=== PATIENT | male | born 1985 | race Caucasian/White ===

== ENCOUNTER 2023-12-01 19:26 | Emergency (ER) | payer MEDICAID, OTHER ==
[~2023-12-01] VITALS: Ht 170.2 cm; Wt 82.7 kg
[2023-12-01 19:27] VITALS: BP 139/92; PULSE 120; RESP 18; O2SAT 99
[2023-12-01] MEDS ORDERED: IBUP-1454 PO (21:12)
[2023-12-01] MEDS ORDERED: ZOFR4T PO (21:12)
== END 2023-12-02 00:39 | disposition home or self-care (01) ==
LOC: ER 19:26
DX: F11.23 Opioid dependence with withdrawal (principal)

== ENCOUNTER 2024-03-09 08:23 | Inpatient (IN) | payer MEDICAID ==
[~2024-03-09] VITALS: Ht 170.2 cm; Wt 82.2 kg
[~2024-03-09 08:23] MED LIST: IBUP-1454 PO; ZOFR4T PO
[2024-03-09 09:24] VITALS: PULSE 55
[2024-03-09] MEDS: PROCHLORPERAZINE EDISYLATE 5 MG/ML 2ML VIAL IV ONE (09:37)
[2024-03-09] MEDS: SODIUM CHLORIDE 0.9% 1,000 ML IVB ONE (09:38)
[2024-03-09] MEDS: LORazepam 2MG/ML-1ML VIAL IV ONE (09:38)
[2024-03-09 10:08] LABS: Basophils # (auto) 0 10 ^3/uL (0-0.2); Eosinophils # (auto) 0 10 ^3/uL (0-0.8); Monocytes # (auto) 0.6 10 ^3/uL (0-1.3)
[2024-03-09 10:10] LABS: Eosinophils % (auto) 0.1 % (0.0-7.0); Hematocrit 50.3 % (41.0-53.0); Hemoglobin 17.1 g/dL (13.5-17.5); Lymphocytes # (auto) 1.2 10 ^3/uL (0.4-5.4); Lymphocytes % (auto) 9.3 % (10.0-50.0); Mean Corpuscular Hemoglobin 27.8 pg (28.0-32.0); Mean Corpuscular Volume 81.8 fL (80.0-100.0); Monocytes % (auto) 4.9 % (0.0-12.0); Neutrophils # (auto) 10.7 10 ^3/uL (1.6-8.6); Neutrophils % (auto) 85.7 % (37.0-80.0); Nucleated Red Blood Cells % 0.3 %; Red Blood Cells 6.15 10^6/uL (4.5-5.90); White Blood Cell 12.5 10^3/uL (4.4-10.8)
[2024-03-09 10:14] LABS: Alanine Aminotransferase 16 U/L (7-40); Albumin 5.7 g/dL (3.2-4.8); Alkaline Phosphatase 62 U/L (46-116); Anion Gap 13 (5-15); Aspartate Aminotransferase 21 U/L (13-40); BUN/Creatinine Ratio 12.6 (10.0-20.0); Blood Urea Nitrogen 13 mg/dL (9-23); Carbon Dioxide 28 mmol/L (20-30); Chloride 97 mmol/L (98-107); Glucose 111 mg/dL (74-106); Potassium 2.7 mmol/L (3.5-5.1); Sodium 138 mmol/L (136-145)
[2024-03-09 10:15] LABS: Bilirubin, Total 0.8 mg/dL (0.2-1.0); Total Protein 9.7 g/dL (5.7-8.2)
[2024-03-09 10:44] LABS: Lipase 69 U/L (12-53)
[2024-03-09 12:00] LABS: Platelet Estimate Adequate
[2024-03-09] MEDS: SODIUM CHLORIDE 0.9% 1,000 ML IV ONE ×2 (12:50→22:01)
[2024-03-09] MEDS: POTASSIUM EFFERVESENT TAB 25 MEQ PO ONE (14:15)
[2024-03-09] MEDS: POTASSIUM CHL 20 Meq TABLET PO ONE (15:39)
[2024-03-09] MEDS ORDERED: NITROGLYCERIN 0.4 MG SL TAB SL PRN (17:15)
[2024-03-09] MEDS: ONDANSETRON HCL 4 MG/2 ML VIAL IV PRN (18:00)
[2024-03-09] MEDS: SODIUM CHLORIDE 0.9% 1,000 ML IV SCH (18:01)
[2024-03-09] MEDS: MORPHINE SULFATE INJ 2 MG/ml SYRG IV PRN (18:18)
[2024-03-09] MEDS ORDERED: metroNIDAZOLE 500MG/100ML 100 ML IV ONE (19:15)
[2024-03-09] MEDS: cefTRIAXone 1GM/50ML D5W 50 ML IV ONE (21:25)
[2024-03-09] MEDS: PANTOPRAZOLE 40 MG/10 ML VIAL INJ IV ONE (21:25)
[2024-03-09] MEDS: KETOROLAC TROMETH 30 MG/ML 1ML VIAL IV ONE (21:26)
[2024-03-09] MEDS: metroNIDAZOLE 500MG/100ML 100 ML IV SCH (22:00)
[2024-03-09 22:09] VITALS: PULSE 67; RESP 16; O2SAT 99
[2024-03-09 22:48] VITALS: PULSE 61; RESP 16
[2024-03-09 23:35] VITALS: BP 119/74; PULSE 47; RESP 17; TEMP 98.2; O2SAT 97
[2024-03-09] MEDS: ACETAMINOPHEN 325 MG TAB PO PRN (23:46)
[2024-03-09] MEDS: KETOROLAC TROMETH 30 MG/ML 1ML VIAL IV PRN (23:47)
[2024-03-10] VITALS (7 sets, daily range): BP systolic 108–122; BP diastolic 70–80; PULSE 45–77; RESP 16–22; TEMP 97.8–98.8; O2SAT 91–100
[2024-03-10] MEDS: metroNIDAZOLE 500 MG TAB PO SCH (05:33)
[2024-03-10 06:49] LABS: Basophils # (auto) 0 10 ^3/uL (0-0.2); Basophils % (auto) 0.3 % (0.0-2.0); Eosinophils # (auto) 0 10 ^3/uL (0-0.8); Hematocrit 40.9 % (41.0-53.0); Hemoglobin 13.6 g/dL (13.5-17.5); Lymphocytes # (auto) 1.5 10 ^3/uL (0.4-5.4); Mean Corpuscular Hemoglobin 27.7 pg (28.0-32.0); Mean Corpuscular Hgb Conc. 33.3 g/dL (32.0-36.0); Mean Corpuscular Volume 83.1 fL (80.0-100.0); Monocytes % (auto) 8.8 % (0.0-12.0); Neutrophils # (auto) 8.8 10 ^3/uL (1.6-8.6); Neutrophils % (auto) 77.9 % (37.0-80.0); Red Blood Cells 4.93 10^6/uL (4.5-5.90); White Blood Cell 11.4 10^3/uL (4.4-10.8)
[2024-03-10 07:05] LABS: Alanine Aminotransferase 10 U/L (7-40); Alkaline Phosphatase 43 U/L (46-116); Anion Gap 7 (5-15); Aspartate Aminotransferase 12 U/L (13-40); BUN/Creatinine Ratio 11.9 (10.0-20.0); Bilirubin, Total 0.7 mg/dL (0.2-1.0); Blood Urea Nitrogen 10 mg/dL (9-23); Carbon Dioxide 25 mmol/L (20-30); Glucose 105 mg/dL (74-106); Lipase 74 U/L (12-53); Potassium 2.9 mmol/L (3.5-5.1); Sodium 140 mmol/L (136-145)
[2024-03-10 07:10] LABS: Chloride 108 mmol/L (98-107)
[2024-03-10] MEDS: ENOXAPARIN SOD 40 MG/0.4 ML SYRINGE SC SCH (09:00)
[2024-03-10] MEDS: PANTOPRAZOLE 40 MG/10 ML VIAL INJ IV SCH (10:21)
[2024-03-10] MEDS: cefTRIAXone 1GM/50ML D5W 50 ML IV SCH (10:22)
[2024-03-10] MEDS: POTASSIUM CHL 20 Meq TABLET PO SCH (10:59)
[2024-03-10 11:13] LABS: Urine Bacteria None Seen /hpf (None Seen)
[2024-03-10 11:34] LABS: Magnesium 1.9 mg/dL (1.6-2.6)
[2024-03-10 11:35] LABS: CRP High Sensitivity 0.1 mg/dL (<1.0)
[2024-03-10 11:48] LABS: Amphetamine Screen, Urine Neg (NEGATIVE); Barbiturate Scree,Urine Neg (NEGATIVE); Benzodiazephine Screen, Urine Neg (NEGATIVE); Cocaine Screen, Urine Neg (NEGATIVE)
[2024-03-10 11:49] LABS: Cannabinoid Screen, Urine Neg (NEGATIVE); Opiate Scree,Urine Neg (NEGATIVE); Phencyclidine Screen, Urine Neg (NEGATIVE)
[2024-03-10 12:01] LABS: Urine Blood Negative /uL (Negative); Urine Clarity Clear (Clear); Urine Color Light-Yellow (Yellow); Urine Protein, UAD Negative (Negative); Urine Urobilinogen Normal (Negative); Urine WBC <1 /hpf (0 - 3)
[2024-03-10 12:35] LABS: Free T3 2.13 pg/mL (2.3-4.2); Free T4 (Free Thyroxine) 0.91 ng/dL (0.89-1.76)
[2024-03-10] MEDS: METOCLOPRAMIDE HCL 5MG/ml INJ 2ml VIAL IV ONE (13:00)
[2024-03-10] MEDS: METOCLOPRAMIDE HCL 5MG/ml INJ 2ml VIAL IV PRN (14:18)
[2024-03-10] MEDS: ACETAMINOPHEN 325 MG TAB PO PRN (15:32)
[2024-03-10] MEDS: POTASSIUM CHLORIDE 40 MEQ, LIDOCAINE 1% (LOCAL ANESTH.) 4 ML in SODIUM CHL 0.9% 250 ML IV ONE (17:57)
[2024-03-10] MEDS: KETOROLAC TROMETH 30 MG/ML 1ML VIAL IV PRN (18:54)
[2024-03-10] MEDS: MELATONIN 5 MG TAB PO SCH (22:35)
[2024-03-11] MEDS: ACETAMINOPHEN 325 MG TAB PO PRN (02:07)
[2024-03-11 05:00] VITALS: BP 116/63; PULSE 54; RESP 18; TEMP 98.1; O2SAT 97
[2024-03-11 06:45] LABS: Basophils # (auto) 0 10 ^3/uL (0-0.2); Basophils % (auto) 0.3 % (0.0-2.0); Eosinophils # (auto) 0 10 ^3/uL (0-0.8); Eosinophils % (auto) 0.3 % (0.0-7.0); Hematocrit 38.4 % (41.0-53.0); Lymphocytes % (auto) 22.2 % (10.0-50.0); Mean Corpuscular Hemoglobin 27.8 pg (28.0-32.0); Mean Corpuscular Hgb Conc. 33.8 g/dL (32.0-36.0); Mean Corpuscular Volume 82.2 fL (80.0-100.0); Monocytes # (auto) 0.8 10 ^3/uL (0-1.3); Monocytes % (auto) 8.8 % (0.0-12.0); Neutrophils % (auto) 68.4 % (37.0-80.0); Nucleated Red Blood Cells % 0.1 %; Red Blood Cells 4.67 10^6/uL (4.5-5.90); Red Cell Distribution Width 13.7 % (11.8-14.3); White Blood Cell 8.8 10^3/uL (4.4-10.8)
[2024-03-11 07:19] LABS: Alanine Aminotransferase 24 U/L (7-40); Albumin 3.8 g/dL (3.2-4.8); Alkaline Phosphatase 38 U/L (46-116); Anion Gap 5 (5-15); Aspartate Aminotransferase 19 U/L (13-40); Bilirubin, Total 0.4 mg/dL (0.2-1.0); Blood Urea Nitrogen 10 mg/dL (9-23); Carbon Dioxide 25 mmol/L (20-30); Chloride 112 mmol/L (98-107); Glucose 117 mg/dL (74-106); Lipase 87 U/L (12-53); Magnesium 1.8 mg/dL (1.6-2.6); Potassium 3.6 mmol/L (3.5-5.1); Sodium 142 mmol/L (136-145); Total Protein 6.4 g/dL (5.7-8.2)
[2024-03-11 08:00] VITALS: PULSE 56
[2024-03-11 09:00] VITALS: BP 120/77; PULSE 54; RESP 19; TEMP 97.8; O2SAT 100
[2024-03-11] MEDS: LACTULOSE 20Gm/30ML SOLN PO ONE (09:01)
[2024-03-11] MEDS: BISACODYL 5 MG EC TAB PO ONE (09:01)
[2024-03-11] MEDS: POTASSIUM EFFERVESENT TAB 25 MEQ PO ONE (09:02)
[2024-03-11] MEDS: METOCLOPRAMIDE HCL 5MG/ml INJ 2ml VIAL IV ONE (09:03)
[2024-03-11] MEDS ORDERED: PANT40TA2 PO (11:02)
[2024-03-11] MEDS ORDERED: LACT10SO3 PO (11:44)
[2024-03-11] MEDS ORDERED: LACTULOSE 20Gm/30ML SOLN PO ONE (11:45)
[2024-03-11 12:31] VITALS: TEMP 36.6
== END 2024-03-11 14:30 | disposition home or self-care (01) | DRG 425 ==
LOC: EDBD 08:23 → ER 08:23 → TELE 17:13 → TELE-WESTW 22:57
PROVIDERS: ADMIT Internal Medicine Pulmonary Disease; ATTEND Internal Medicine Pulmonary Disease
DX: E87.6 Hypokalemia (principal); K56.7 Ileus, unspecified; R65.10 Systemic inflammatory response syndrome (SIRS) of non-infectious origin without acute organ dysfunction; F11.23 Opioid dependence with withdrawal; E83.52 Hypercalcemia; E07.81 Sick-euthyroid syndrome; Z79.899 Other long term (current) drug therapy
CPT/HCPCS: 36415; 70450; 71045; 74176; 80053; 80307; 80320; 81001; 82306; 83605; 83690; 83735; 84132; 84439; 84443; 84481; 84484; 85025; 86141; 87040; 93005; 93306; 93886; 97163; C9113; G0378; J1885; J2001; J2405

== ENCOUNTER 2024-05-09 19:34 | Inpatient (IN) | payer MEDICAID ==
[~2024-05-09] VITALS: Ht 170.2 cm; Wt 81.2 kg
[2024-05-09] MEDS: SODIUM CHLORIDE 0.9% 1,000 ML IV ONE (19:30)
[~2024-05-09 19:34] MED LIST changes: -IBUP-1454 PO; +LACT10SO3 PO; +PANT40TA2 PO; -ZOFR4T PO
[2024-05-09 20:17] LABS: Basophils # (auto) 0 10 ^3/uL (0-0.2); Basophils % (auto) 0.3 % (0.0-2.0); Eosinophils # (auto) 0 10 ^3/uL (0-0.8); Hematocrit 41.1 % (41.0-53.0); Hemoglobin 13.6 g/dL (13.5-17.5); Lymphocytes # (auto) 1.3 10 ^3/uL (0.4-5.4); Mean Corpuscular Hemoglobin 27.2 pg (28.0-32.0); Mean Corpuscular Hgb Conc. 33.1 g/dL (32.0-36.0); Monocytes # (auto) 0.8 10 ^3/uL (0-1.3); Monocytes % (auto) 7.4 % (0.0-12.0); Neutrophils # (auto) 8.7 10 ^3/uL (1.6-8.6); Neutrophils % (auto) 80.3 % (37.0-80.0); Nucleated Red Blood Cells % 0.1 %; Platelet Count (auto) 345 10^3/uL (140-450); Red Blood Cells 5.01 10^6/uL (4.5-5.90); White Blood Cell 10.8 10^3/uL (4.4-10.8)
[2024-05-09 20:28] LABS: Chloride 108 mmol/L (98-107); Sodium 143 mmol/L (136-145)
[2024-05-09 20:30] LABS: Anion Gap 12 (5-15); Carbon Dioxide 23 mmol/L (20-30)
[2024-05-09 20:35] LABS: Blood Urea Nitrogen 16 mg/dL (9-23); Glucose 110 mg/dL (74-106)
[2024-05-09 20:38] LABS: Potassium 2.5 mmol/L (3.5-5.1)
[2024-05-09 23:26] LABS: Lipase 45 U/L (12-53)
[2024-05-09 23:28] LABS: Creatine Kinase IFCC 84 U/L (46-171)
[2024-05-10] MEDS: POTASSIUM EFFERVESENT TAB 25 MEQ PO ONE ×3 (00:10→21:08)
[2024-05-10] MEDS: SODIUM CHLORIDE 0.9% 1,000 ML IV ONE ×3 (00:11→03:50)
[2024-05-10] MEDS: ONDANSETRON HCL 4 MG/2 ML VIAL IV ONE ×2 (00:11→02:10)
[2024-05-10] MEDS: MORPHINE SULFATE 4 MG/ML SYR/VIAL IV ONE (02:10)
[2024-05-10] MEDS ORDERED: ACETAMINOPHEN 325 MG TAB PO PRN (03:15)
[2024-05-10] MEDS: cefTRIAXone 1GM/50ML D5W 50 ML IV SCH (03:57)
[2024-05-10] MEDS: HYDROcodone-ACET 5/325MG TAB PO PRN (04:25)
[2024-05-10] MEDS: metroNIDAZOLE 500MG/100ML 100 ML IV SCH (06:17)
[2024-05-10] MEDS: ONDANSETRON HCL 4 MG/2 ML VIAL IV PRN (06:32)
[2024-05-10 07:30] VITALS: PULSE 50; RESP 16; O2SAT 96
[2024-05-10] MEDS: MORPHINE SULFATE INJ 2 MG/ml SYRG IV PRN (08:04)
[2024-05-10 12:50] VITALS: BP 130/85; PULSE 49; RESP 19; TEMP 98.2; O2SAT 100
[2024-05-10 12:55] VITALS: PULSE 49; RESP 19; O2SAT 100
[2024-05-10] MEDS: KETOROLAC TROMETH 30 MG/ML 1ML VIAL IV PRN (14:36)
[2024-05-10] MEDS: LACTATED RINGER'S 1,000 ML IV SCH (14:37)
[2024-05-10 17:00] VITALS: BP 125/76; PULSE 53; RESP 19; TEMP 97.3; O2SAT 100
[2024-05-10 19:29] LABS: Anion Gap 8 (5-15); Carbon Dioxide 22 mmol/L (20-30); Chloride 112 mmol/L (98-107); Potassium 3.2 mmol/L (3.5-5.1); Sodium 142 mmol/L (136-145)
[2024-05-10 19:30] LABS: Calcium 8.9 mg/dL (8.7-10.4)
[2024-05-10 19:35] LABS: BUN/Creatinine Ratio 18.3 (10.0-20.0); Blood Urea Nitrogen 13 mg/dL (9-23); Glucose 95 mg/dL (74-106)
[2024-05-10 20:00] VITALS: PULSE 68; RESP 68; O2SAT 96
[2024-05-10] MEDS: DICYCLOMINE HCL 10 MG CAP PO ONE (20:51)
[2024-05-10 21:00] VITALS: BP 124/77; PULSE 48; RESP 18; TEMP 98.4; O2SAT 100
[2024-05-10] MEDS: PANTOPRAZOLE 40 MG/10 ML VIAL INJ IV ONE (21:08)
[2024-05-10 22:29] LABS: Bilirubin, Direct 0.3 mg/dL (<0.3); Bilirubin, Total 0.8 mg/dL (0.2-1.0); Blood Alcohol 4.4 mg/dL (<10)
[2024-05-10 22:30] LABS: Total Protein 6.8 g/dL (5.7-8.2)
[2024-05-11 01:00] VITALS: BP 128/73; PULSE 51; RESP 18; TEMP 98.3; O2SAT 100
[2024-05-11 05:00] VITALS: BP 132/78; PULSE 89; RESP 18; TEMP 98.1; O2SAT 100
[2024-05-11 09:00] VITALS: BP 143/84; PULSE 50; RESP 18; TEMP 98.8; O2SAT 98
[2024-05-11 10:16] LABS: COVID19 ANTIGEN SOFIA FIA NEGATIVE (NEGATIVE)
[2024-05-11] MEDS: NICOTINE 7MG/24HR TOPICAL PATCH TD SCH (10:35)
[2024-05-11] MEDS: PANTOPRAZOLE 40 MG/10 ML VIAL INJ IV SCH (10:35)
[2024-05-11 13:00] VITALS: BP 137/81; PULSE 51; RESP 18; TEMP 98.1; O2SAT 98
[2024-05-11 13:54] LABS: Basophils # (auto) 0 10 ^3/uL (0-0.2); Basophils % (auto) 0.3 % (0.0-2.0); Eosinophils # (auto) 0 10 ^3/uL (0-0.8); Hematocrit 42.6 % (41.0-53.0); Lymphocytes # (auto) 1.5 10 ^3/uL (0.4-5.4); Lymphocytes % (auto) 21.3 % (10.0-50.0); Mean Corpuscular Hemoglobin 27.7 pg (28.0-32.0); Mean Corpuscular Hgb Conc. 32.9 g/dL (32.0-36.0); Mean Corpuscular Volume 84.3 fL (80.0-100.0); Monocytes # (auto) 0.4 10 ^3/uL (0-1.3); Monocytes % (auto) 5.9 % (0.0-12.0); Neutrophils % (auto) 72.5 % (37.0-80.0); Platelet Count (auto) 249 10^3/uL (140-450); Red Blood Cells 5.05 10^6/uL (4.5-5.90); Red Cell Distribution Width 15.1 % (11.8-14.3); White Blood Cell 6.9 10^3/uL (4.4-10.8)
[2024-05-11 14:19] LABS: Alanine Aminotransferase 15 U/L (7-40); Alkaline Phosphatase 49 U/L (46-116); Anion Gap 9 (5-15); Aspartate Aminotransferase 20 U/L (13-40); BUN/Creatinine Ratio 17.8 (10.0-20.0); Blood Urea Nitrogen 13 mg/dL (9-23); Calcium 9.4 mg/dL (8.7-10.4); Carbon Dioxide 24 mmol/L (20-30); Chloride 107 mmol/L (98-107); Glucose 106 mg/dL (74-106); Potassium 3.8 mmol/L (3.5-5.1); Sodium 140 mmol/L (136-145)
[2024-05-11 14:20] LABS: Albumin 4.4 g/dL (3.2-4.8); Bilirubin, Total 0.7 mg/dL (0.2-1.0); Total Protein 7.5 g/dL (5.7-8.2)
[2024-05-11 17:00] VITALS: BP 119/75; PULSE 55; RESP 18; TEMP 97.6; O2SAT 96
[2024-05-11 21:00] VITALS: BP 98/60; PULSE 60; RESP 18; TEMP 98.6; O2SAT 100
[2024-05-11] MEDS: VANCOMYCIN HCL 125 MG CAP PO SCH (21:20)
[2024-05-12] VITALS (7 sets, daily range): BP systolic 98–127; BP diastolic 56–84; PULSE 47–57; RESP 17–19; TEMP 97.7–98.1; O2SAT 97–100
[2024-05-12] MEDS: FLORASTOR (S. BOULARDII) 250 MG CAP PO SCH (16:09)
[2024-05-13 01:00] VITALS: BP 112/70; PULSE 48; RESP 16; TEMP 98.5; O2SAT 97
[2024-05-13 05:00] VITALS: BP 126/84; PULSE 51; RESP 20; TEMP 98; O2SAT 99
[2024-05-13 09:00] VITALS: BP 145/88; PULSE 51; RESP 16; TEMP 98.4; O2SAT 99
[2024-05-13 13:00] VITALS: BP 152/92; PULSE 81; RESP 16; TEMP 98.4; O2SAT 99
[2024-05-13 17:00] VITALS: BP 131/82; PULSE 85; RESP 14; TEMP 98.4; O2SAT 98
[2024-05-13 20:00] VITALS: PULSE 63; RESP 18; O2SAT 100
[2024-05-14 05:21] VITALS: BP 137/83; PULSE 47; RESP 19; TEMP 98.7; O2SAT 100
[2024-05-14] MEDS ORDERED: VANC125PO GT (11:58)
[2024-05-14] MEDS ORDERED: FAMO20TA10 PO (12:01)
== END 2024-05-14 13:49 | disposition home or self-care (01) | DRG 248 ==
LOC: ER 19:34 → OVERFLOW 05-10 03:16 → CENTRAL 05-10 13:45 → EAST 05-11 19:50
PROVIDERS: ADMIT Nurse Practitioner; ATTEND Family Medicine
DX: A04.72 Enterocolitis due to Clostridium difficile, not specified as recurrent (principal); M87.851 Other osteonecrosis, right femur; T67.5XXA Heat exhaustion, unspecified, initial encounter; E87.6 Hypokalemia; M87.852 Other osteonecrosis, left femur; Z59.00 Homelessness unspecified; X30.XXXA Exposure to excessive natural heat, initial encounter; Y93.89 Activity, other specified; Y92.89 Other specified places as the place of occurrence of the external cause; Y99.8 Other external cause status
CPT/HCPCS: 36415; 74176; 80048; 80053; 80076; 80320; 82270; 82550; 83690; 83986; 85025; 85048; 87045; 87426; 87427; 87493; 96361; 96365; 96375; 96376; 99291; G0378; J1885; J2405; J2470; J3490